=== PATIENT | female | born 1970 | race African-American/Black ===

== ENCOUNTER → 2024-03-21 07:14 | Day surgery (SDC) | payer OTHER, SELFPAY | LOC: GI 07:14 | PROVIDERS: ATTENDING PHYSICIAN Internal Medicine; FAMILY PHYSICIAN Family Medicine | DX: K57.30 Diverticulosis of large intestine without perforation or abscess without bleeding (principal); R93.3 Abnormal findings on diagnostic imaging of other parts of digestive tract; R11.2 Nausea with vomiting, unspecified; K63.89 Other specified diseases of intestine; K31.A19 Gastric intestinal metaplasia without dysplasia, unspecified site; Z98.84 Bariatric surgery status; Z86.010 Personal history of colon polyps | CPT/HCPCS: 45378; 43239; 88305; 88342 ==